=== PATIENT | male | born 1955 | race Caucasian/White ===

== ENCOUNTER 2016-11-06 10:03 | Emergency (ER) | payer BC, MEDICAID ==
[~2016-11-06] VITALS: Ht 177.8 cm; Wt 95.6 kg
[~2016-11-06 10:03] MED LIST: FLEX10TA PO; HYDR-3129 PO; OXYC-360 PO; RANI150T PO
[2016-11-06 10:06] VITALS: BP 143/88; PULSE 78; RESP 16; TEMP 98.6; O2SAT 97
--- NOTE | 2016-11-06 10:15 | PD ---
HPI Chief Complaint: Complaint Time Seen by Provider: 10:11 Travel History International Travel<30 days: No Contact w/Intl Traveler<30days: No Traveled to known affect area: No History of Present Illness HPI Patient is a 61-year-old male presents emergency department for evaluation of right testicular pain. Patient states he noticed the pain approximately 3 days ago and is been gradually worsening. He's been taking Tylenol ibuprofen making him feel better. He thinks he strained a muscle as he is been lifting heavy objects. He also relates a history that his grandson when he runs up to him and hugs him always seems to impact his head on his genital area. Patient denies any dysuria denies any Justine discharge denies any abdominal pain nausea vomiting. [facility] Past Medical History GERD: Yes Musculoskeletal: Yes (CHRONIC BACK PAIN) Social History Alcohol Use: Yes (occ) Tobacco Use: Yes (less than 1 ppd) Substance Use: No Allergies-Medications (Allergen,Severity, Reaction): Coded Allergies: Aspirin (Unverified Adverse Reaction, Unknown, INDIGESTION, 11/06/16) Reported Meds & Prescriptions Reported Meds & Active Scripts Active Levaquin (Levofloxacin) 750 Mg Tablet 750 Mg PO DAILY 10 Days Reported Ranitidine (Ranitidine HCl) 150 Mg Tab 150 Mg PO DAILY Review of Systems Except as stated in HPI: all other systems reviewed are Neg Physical Exam Narrative GENERAL: Well-developed well-nourished in no obvious distress. SKIN: Focused skin assessment warm/dry. HEAD: Atraumatic. Normocephalic. EYES: Pupils equal and round. No scleral icterus. No injection or drainage. ENT: No nasal bleeding or discharge. Mucous membranes pink and moist. NECK: Trachea midline. No JVD. CARDIOVASCULAR: Regular rate and rhythm. No murmur appreciated. RESPIRATORY: No accessory muscle use. Clear to auscultation. Breath sounds equal bilaterally. GASTROINTESTINAL: Abdomen soft, non-tender, nondistended. Hepatic and splenic margins not palpable. GENITOURINARY: Circumcised penis, the right scrotum is certainly full and fairly firm to palpation, underlying testicle is difficult to palpate. No overlying erythema no hernia felt. There is some minimal tenderness on the right epididymis. MUSCULOSKELETAL: No obvious deformities. No clubbing. No cyanosis. No edema. NEUROLOGICAL: Awake and alert. No obvious cranial nerve deficits. Motor grossly within normal limits. Normal speech. PSYCHIATRIC: Appropriate mood and affect; insight and judgment normal. Data Data Last Documented VS Vital Signs Date Time Temp Pulse Resp B/P Pulse Ox O2 Delivery O2 Flow Rate FiO2 11/06/16 10:06 98.6 78 16 143/88 97 Orders Us Testicles W Doppler (11/06/16 ) Urinalysis - C+S If Indicated (11/06/16 10:15) Gc And Chlamydia Pcr (11/06/16 10:15) Labs Laboratory Tests Test 11/06/16 11:15 Urine Collection Type CLEAN CATCH Urine Color YELLOW Urine Turbidity CLEAR Urine pH 5.0 Urine Specific [place] 1.028 Urine Protein NEG mg/dL Urine Glucose (UA) 500 mg/dL Urine Ketones NEG mg/dL Urine Occult Blood TRACE Urine Nitrite NEG Urine Bilirubin NEG Urine Leukocyte Esterase NEG Urine RBC 0-3 /hpf Urine Squamous Epithelial 0-5 /hpf Cells Microscopic Urinalysis Comment CULT NOT INDICATED Urine Collection Time 11:15 Chlamydia trachomatis DNA NOT DETECTED (PCR) Neisseria gonorrhoeae DNA NOT DETECTED (PCR) MDM Medical Decision Making Medical Screen Exam Complete: Yes Emergency Medical Condition: Yes Differential Diagnosis Hydrocele, testicular torsion, testicular abscess seems unlikely, epididymitis, orchitis, hernia Narrative Course Patient roomed in the emergency department, UA negative, low risk for STDs, Last 24 hours Impressions Scrotum Ultrasound 11/06/16 0000 Signed Impressions: Service Date/Time: Sunday, November 06, 2016 10:21 - CONCLUSION: 1. No intratesticular mass identified. 2. Dilation of the rete testis on the right. 3. Moderate size hydroceles bilaterally. 4. Blood flow to the testicles is intact. 5. 4 mm epididymal cyst on the left. Phil Miguel MD Discussed with the patient the findings and recommended follow-up with urologist. Given a physical exam findings and the ultrasound findings and thinks probable for orchitis and epididymitis. We'll place on Levaquin. Discussed need for follow-up with his primary care physician. He was offered pain medicine in the emergency department and declined. Offered a prescription go home and he also declined. Discussed return to ED criteria. Diagnosis Primary Impression: Epididymitis Additional Impression: Hydrocele in adult Referrals: Дмитрий Vaughn MD Med/Other Pt SpecificInfo: Prescription(s) given Scripts Levofloxacin (Levaquin)750 Mg [id number] Mg PO DAILY 10 Days Prov:Dorian Burns MD 11/06/16 Disposition: 01 DISCHARGE HOME Condition: Stable Dorian Burns MD Nov 06, 2016 10:15
[2016-11-06] MEDS ORDERED: RANI150T PO (10:17)
[2016-11-06 11:19] LABS: BLOOD, URINE TRACE (NEG); GLUCOSE,URINE 500 mg/dL (NEG); KETONE, URINE NEG (NEG); NITRITE,URINE NEG (NEG)
[2016-11-06 11:26] LABS: COMMENT (UR) CULT NOT INDICATED; CULTURE IF INDICATED CULT NOT INDICATED; METHOD OF COLLECTION CLEAN CATCH; RBC, URINE 0-3 /hpf (0-3); SQUAMOUS EPITHELIAL CELL URINE 0-5 /hpf (0-5); URINE COLOR YELLOW (YELLW/STRAW)
--- NOTE | 2016-11-06 12:05 | RADRPT ---
EXAM DATE/TIME: 11/06/2016 10:21 [facility] COMPARISON: No previous studies available for comparison. INDICATIONS : Right testicle pain. MEDICAL HISTORY : Gastroesophageal reflux disease. SURGICAL HISTORY : None. ENCOUNTER: Initial ACUITY: 2 days PAIN SCORE: 7/10 LOCATION: Bilateral scrotum. MEASUREMENTS: RIGHT TESTICLE: 4.3 x 3.3 x 3.3cm LEFT TESTICLE: 3.7 x 3.1 x 2.6cm FINDINGS: RIGHT TESTICLE: Homogeneous echotexture without intra or extratesticular mass. Note is made of dilation of the rete t estis. Blood flow is symmetric and within normal limits there is a moderate sized hydrocele. The epid idymis is normal in appearance. LEFT TESTICLE: Homogeneous echotexture without intra or extratesticular mass. Blood flow is symmetric and within no rmal limits. There is a moderate size hydrocele. There is a 4 mm epididymal cyst. There is a small va ricocele. SCROTUM: Within normal limits. CONCLUSION: 1. No intratesticular mass identified. 2. Dilation of the rete testis on the right. 3. Moderate size hydroceles bilaterally. 4. Blood flow to the testicles is intact. 5. 4 mm epididymal cyst on the left. Phil Miguel MD on November 06, 2016 at 12:01 Board Certified Radiologist. This report was verified electronically.
[2016-11-06] MEDS ORDERED: LEVA750T9 PO (12:11)
[2016-11-06 16:05] LABS: CHLAMYDIA PCR NOT DETECTED (NOT DETECT); NEISSERIA PCR NOT DETECTED (NOT DETECT)
== END 2016-11-06 12:33 | disposition home or self-care (01) ==
LOC: PHED 10:03
DX: N45.1 Epididymitis (principal); N43.3 Hydrocele, unspecified; K21.9 Gastro-esophageal reflux disease without esophagitis; F17.210 Nicotine dependence, cigarettes, uncomplicated
CPT/HCPCS: 76870; 81001; 87491; 87591; 93975; 99284